=== PATIENT | male | born 1975 ===

== ENCOUNTER 2025-03-09 10:25 | Emergency (ER) | payer MEDICARE ==
[~2025-03-09] VITALS: Ht 177.8 cm; Wt 83.9 kg
[~2025-03-09 10:25] MED LIST: CEPH500 PO
[2025-03-09 11:42] LABS: BASOPHILS ABSOLUTE AUTO 0.07 K/mm3 (0.00-0.23); BASOPHILS PERCENT AUTO 1 % (0-2); EOSINOPHILS ABSOLUTE AUTO 0.09 K/mm3 (0.00-0.68); EOSINOPHILS PERCENT AUTO 1 % (0-6); Hematocrit 43.2 % (37.0-53.0); Hemoglobin 15.1 g/dL (13.5-17.5); IMMATURE GRAN ABSOLUTE AUTO 0.04 K/mm3 (0.00-0.10); IMMATURE GRAN PERCENT AUTO 0 % (0-1); LYMPHOCYTES ABSOLUTE AUTO 2.01 K/mm3 (0.84-5.20); LYMPHOCYTES PERCENT AUTO 20 % (21-46); MONOCYTES ABSOLUTE AUTO 1.15 K/mm3 (0.16-1.47); MONOCYTES PERCENT AUTO 11 % (4-13); Mean Corpuscular HGB Conc 35.0 g/dL (31.5-36.5); Mean Corpuscular Volume 91 fL (80-100); NEUTROPHILS ABSOLUTE AUTO 6.96 K/mm3 (1.96-9.15); NEUTROPHILS PERCENT AUTO 67 % (41-73); NRBC ABSOLUTE 0.00 K/mm3 (0.00-0.02); NRBC Auto 0.0 /100 WBC (0.0-0.2); Platelet Count 260 K/mm3 (150-400); RDW Coefficient Variation 11.7 % (11.7-14.2); RDW Standard Deviation 39.1 fL (35.1-46.3)
[2025-03-09 12:01] LABS: C-REACTIVE PROTEIN, EXT RANGE 7.13 mg/dL (0.000-0.300)
[2025-03-09 12:04] LABS: Anion Gap 6.0 mmol/L (3-11); Blood Urea Nitrogen 15.0 mg/dL (8-24); CO2, Blood 29.0 mmol/L (21-32); Calcium, Blood 9.5 mg/dL (8.5-10.1); Chloride, Blood 105.0 mmol/L (98-108); Creatinine, Blood 0.75 mg/dL (0.60-1.20); Glucose, Blood 95.0 mg/dL (70-99); Potassium, Blood 4.1 mmol/L (3.5-5.5); Sodium, Blood 136.0 mmol/L (136-145)
[2025-03-09] MEDS ORDERED: Colchicine 0.6 MG TAB PO ONE ×2 (16:45→17:35)
[2025-03-09] MEDS ORDERED: Ketorolac Tromethamine 15mg Vial IM ONE (16:50)
[2025-03-09] MEDS ORDERED: PRED20 PO (17:38)
[2025-03-09] MEDS ORDERED: INDOMETHACIN PO (17:39)
== END 2025-03-09 17:46 | disposition home or self-care (01) ==
LOC: ER 10:25
PROVIDERS: Student in an Organized Health Care Education/Training Program
DX: M10.9 Gout, unspecified (principal); Z79.2 Long term (current) use of antibiotics
CPT/HCPCS: 20606; 36415; 73070; 76882; 80048; 83605; 85025; 85651; 86140; 87040; 87070; 87075; 87205; 89060; 96372-59; 99284-25; A9270; J1885; J7512